=== PATIENT | female | born 1965 | race African-American/Black ===

== ENCOUNTER 2016-11-28 12:10 | Emergency (ER) | payer MEDICARE, MEDICAID ==
[~2016-11-28] VITALS: Ht 180.3 cm; Wt 64.0 kg
[~2016-11-28 12:10] MED LIST: ARIP15TA2 PO; BACL-141 PO; DILAUDID; ESOM40CA PO; HYDR4TAB56 PO; NEXIUM; ONDA4SOL2 INJ; OXYCONTIN; TEMA15CA PO
[2016-11-28] MEDS ORDERED: BACITRACIN ZINC OINT UDPKT TOP ONE (15:00)
[2016-11-28] MEDS ORDERED: MORPHINE SULFATE 10 MG/ML CPJ IM ONE (15:00)
[2016-11-28] MEDS ORDERED: LIDOCAINE HCL/EPINEPHRINE 1%-EPI 1:100,000 30 ML VIAL INFIL ONE (15:00)
[2016-11-28] MEDS ORDERED: DIPHENHYDRAMINE 25MG CAPSULE PO ONE (15:15)
[2016-11-28] MEDS ORDERED: LIDOCAINE HCL 2%/EPINEPHRINE/PF 10 ML VIAL INFIL ONE (16:00)
[2016-11-28] MEDS ORDERED: LIDOCAINE HCL 1%/EPI 1:200,000 30 ML VIAL IJ SCH (16:46)
[2016-11-28 18:00] VITALS: BP 94/52
== END 2016-11-28 18:02 | disposition home or self-care (01) ==
LOC: ER 13:55
DX: L02.413 Cutaneous abscess of right upper limb (principal); K91.1 Postgastric surgery syndromes; F17.210 Nicotine dependence, cigarettes, uncomplicated; Z98.84 Bariatric surgery status
CPT/HCPCS: 10060; 96372; 99283; J2270; J3490; Q0163

== ENCOUNTER 2018-04-13 20:30 | Emergency (ER) | payer MEDICARE, MEDICAID ==
[~2018-04-13] VITALS: Ht 180.3 cm; Wt 59.0 kg
[2018-04-13 20:45] VITALS: BP 155/105
== END 2018-04-13 21:30 | disposition left against medical advice (07) ==
LOC: ER 20:30
DX: Z53.21 Procedure and treatment not carried out due to patient leaving prior to being seen by health care provider (principal)

== ENCOUNTER 2018-04-14 06:13 | Emergency (ER) | payer MEDICARE, MEDICAID ==
[~2018-04-14] VITALS: Ht 180.3 cm; Wt 59.0 kg
[2018-04-14] MEDS ORDERED: LIDOCAINE HCL/PF 1% 10 MG/ML 5ML VIAL IJ ONE (08:00)
[2018-04-14] MEDS ORDERED: BACITRACIN ZINC OINT UDPKT TOP ONE (08:00)
[2018-04-14] MEDS ORDERED: HYDROCODONE/ACETAMINOPHEN 5/325MG TABLET PO ONE (08:00)
[2018-04-14] MEDS ORDERED: LIDOCAINE HCL 1% 20ML VIAL (Pyxis) INJ ONE (08:25)
[2018-04-14 09:54] VITALS: BP 139/97
== END 2018-04-14 09:56 | disposition home or self-care (01) ==
LOC: ER 06:13
DX: L02.414 Cutaneous abscess of left upper limb (principal); F17.200 Nicotine dependence, unspecified, uncomplicated; Z98.84 Bariatric surgery status; Z98.890 Other specified postprocedural states; Z79.899 Other long term (current) drug therapy
CPT/HCPCS: 10060; 81025; 99283; J3490

== ENCOUNTER 2019-06-13 09:35 | Day surgery (SDC) | payer MEDICARE, MEDICAID ==
[~2019-06-13] VITALS: Ht 177.8 cm; Wt 49.9 kg
[2019-06-13 10:54] LABS: *AMPHETAMINES SCREEN URINE NEGATIVE (NEGATIVE); *BARBITURATES SCREEN URINE NEGATIVE (NEGATIVE); *BENZODIAZEPINES SCREEN URINE NEGATIVE (NEGATIVE); *COCAINE SCREEN URINE NEGATIVE (NEGATIVE); CANNABINOID URINE SCREEN NEGATIVE (NEGATIVE); METHADONE URINE SCREEN NEGATIVE (NEGATIVE); OPIATES URINE SCREEN PRESUMTIVE POSITIVE (NEGATIVE); PHENCYCLIDINE URINE SCREEN NEGATIVE (NEGATIVE)
[2019-06-13] MEDS ORDERED: LACTATED RINGERS 1,000 ML IV SCH (11:00)
[2019-06-13] MEDS ORDERED: PROPOFOL 200MG/20ML VIAL IV ONE (12:49)
[2019-06-13] MEDS ORDERED: MIDAZOLAM HCL 5 MG/5 ML VIAL ONE (12:49)
[2019-06-13] MEDS ORDERED: SUCCINYLCHOLINE CHLORIDE 200MG/10ML IV ONE (12:50)
[2019-06-13] MEDS ORDERED: FENTANYL CITRATE/PF 50MCG/ML 2ML VIAL ONE (12:53)
[2019-06-13] MEDS ORDERED: [UNRECOGNIZED DRUG - OTHER] PO (13:00)
[2019-06-13] MEDS ORDERED: MULT-1146 PO (13:00)
[2019-06-13] MEDS ORDERED: DIPH25CA83 PO (13:00)
[2019-06-13] MEDS ORDERED: NA P230E RC (13:00)
[2019-06-13] MEDS ORDERED: FERR325T6 PO (13:00)
[2019-06-13] MEDS ORDERED: MOM PO (13:00)
[2019-06-13] MEDS ORDERED: SENN-170 PO (13:00)
[2019-06-13] MEDS ORDERED: DULO30CA52 PO (13:00)
[2019-06-13] MEDS ORDERED: HYDR-3281 PO (13:00)
[2019-06-13] MEDS ORDERED: ASCO500C18 PO (13:00)
[2019-06-13] MEDS ORDERED: PROT40 PO (13:00)
[2019-06-13] MEDS ORDERED: ONDA4TAB11 PO (13:00)
[2019-06-13] MEDS ORDERED: DOCU-138 PO (13:00)
[2019-06-13] MEDS ORDERED: SODIUM CHLORIDE 0.9% 1,000 ML IV ONE (13:14)
[2019-06-13] MEDS ORDERED: ONDANSETRON HCL 4MG/2ML INJ IV PRN (13:15)
[2019-06-13] MEDS ORDERED: HYDROMORPHONE HCL/PF 2MG/ML CPJ IV PRN (13:15)
== END 2019-06-13 14:40 | disposition home or self-care (01) ==
LOC: OR 09:35
PROVIDERS: ATTEND Internal Medicine Gastroenterology
DX: R10.13 Epigastric pain (principal); E46 Unspecified protein-calorie malnutrition; K83.8 Other specified diseases of biliary tract; K21.9 Gastro-esophageal reflux disease without esophagitis; F17.210 Nicotine dependence, cigarettes, uncomplicated; Z79.899 Other long term (current) drug therapy; Z98.890 Other specified postprocedural states; Z88.6 Allergy status to analgesic agent
CPT/HCPCS: 43235; 80305; C1893; J0330; J2250; J2704; J3010